=== PATIENT | male | born 1965 | race Caucasian/White ===

== ENCOUNTER 2024-01-13 03:14 | Emergency (ER) | payer OTHER ==
[~2024-01-13] VITALS: Ht 162.6 cm; Wt 74.8 kg
[2024-01-13 03:23] VITALS: BP_SYST 113; PULSE 59; RESP 16; TEMP 97.6; O2SAT 100
[2024-01-13] MEDS: MORPHINE 4 MG INJ. 4 MG/ML VIAL IVP ONE (03:38)
[2024-01-13] MEDS: ONDANSETRON HCL 4 MG/2 ML VIAL IVP ONE (03:39)
[2024-01-13] MEDS: ASPIRIN 81 MG TAB.CHEW PO ONE (03:40)
[2024-01-13 03:47] LABS: BASOPHILS # (AUTO) 0.1 K/uL (0.0-0.2); BASOPHILS % (AUTO) 0.7 % (0.0-2.0); EOSINOPHILS # (AUTO) 0.2 K/uL (0.0-0.4); EOSINOPHILS % (AUTO) 2.2 % (0.0-4.0); HEMOGLOBIN 14.2 g/dL (14.0-18.0); LYMPHOCYTES # (AUTO) 3.7 K/uL (1.0-5.5); LYMPHOCYTES % (AUTO) 46.6 % (20.5-51.5); MEAN CORPUSCULAR HEMOGLOBIN 29 pg (27-31); MEAN CORPUSCULAR HGB CONC 33 % (32-36); MEAN CORPUSCULAR VOLUME 87 fL (79.0-98.0); MONOCYTES # (AUTO) 0.6 K/uL (0.0-1.0); MONOCYTES % (AUTO) 7.5 % (1.7-9.3); NEUTROPHILS # (AUTO) 3.4 K/uL (1.8-7.7); PLATELET COUNT (AUTO) 344 K/uL (130-430); RED BLOOD CELL COUNT(AUTO) 4.94 MIL/uL (4.2-6.2); RED CELL DISTRIBUTION WIDTH 12.9 % (9.0-15.0)
[2024-01-13 04:02] LABS: ALANINE AMINOTRANSFERASE 22 U/L (12-78); ALBUMIN 3.8 g/dL (3.4-4.8); ANION GAP 13 (5-15); ASPARTATE AMINOTRANSFERASE 20 U/L (10-37); BILIRUBIN,DIRECT 0.1 mg/dL (0.0-0.3); CARBON DIOXIDE 26 mmol/L (23-29); CHLORIDE 102 mmol/L (98-107); CREATININE 0.96 mg/dL (0.55-1.30); GFR AFRICAN AMERICAN 104 mL/min (>90); GFR NON AFRICAN-AMERICAN 86 mL/min (>90); GLUCOSE 152 mg/dL (74-106); LIPASE 64 U/L (16-77); POTASSIUM 3.3 mmol/L (3.5-5.1); SODIUM SERUM 141 mmol/L (136-145); TOTAL BILIRUBIN 0.4 mg/dL (0.0-1.0); TOTAL PROTEIN, SERUM 7.3 g/dL (6.4-8.3); UREA NITROGEN, BLOOD 15 mg/dL (8-21)
[2024-01-13] MEDS ORDERED: OMEP20CA15 PO (06:59)
[2024-01-13 07:28] VITALS: BP_SYST 107; PULSE 58; RESP 20; TEMP 97.8; O2SAT 97
== END 2024-01-13 07:34 | disposition home or self-care (01) ==
LOC: SED 03:14
DX: R07.89 Other chest pain (principal); R10.13 Epigastric pain
CPT/HCPCS: 99285; 71260; 96374; 71045; 96375; 80076; 80048; 83690; 85025; 85379; 84484; 36415; 93005; 74177; J2405; J2270; Q9967